=== PATIENT | male | born 1990 | race Caucasian/White ===

== ENCOUNTER 2016-10-18 16:11 | Inpatient (IN) | payer OTHER ==
[~2016-10-18] VITALS: Ht 190.5 cm; Wt 140.1 kg
--- NOTE | ~2016-10-18 | HP ---
PATIENT'S NAME: KORINA DOMINGO [facility] AGE: 25 Y [address] ROOM: [place] [address] LOCATION: [facility] ADMIT DATE: 10/18/2016 History & Physical DISCHARGE DATE: FAMILY PHYSICIAN: Kade Fischer MD ATTENDING PHYSICIAN: LEANDRO KEYES DATE OF SERVICE: CHIEF COMPLAINT: Left leg pain. HISTORY OF PRESENT ILLNESS: Mr. Domingo is a pleasant 25-year-old gentleman, who sustained a trauma to his left lower extremity when a coworker accidentally lowered a backhoe bucket onto his left ankle. At that time, he complained of immediate left ankle and foot pain /. Aggravating factors include manipulation of the limb, attempted weightbearing, or movement of the leg. Alleviating factors include rest, ice, and elevation. He was seen at outside hospital and transferred to our emergency room for definitive orthopedic care. The patient denies any previous trauma or surgery to that limb. He reports that the injury occurred at 1400 hours today. He currently denies any constitutional symptoms such as fever, chills, or night sweats. He also denies any dizziness, chest pain, shortness of breath, blurred vision, nausea, vomiting, or diarrhea. REVIEW OF SYSTEMS: A 10-point review of system otherwise, as mentioned above in the HPI. PAST MEDICAL HISTORY: Includes depression and hypertension. PAST SURGICAL HISTORY: None. ALLERGIES: NO KNOWN DRUG ALLERGIES. MEDICATIONS: Include, 1. Lisinopril. 2. Zoloft. SOCIAL HISTORY: The patient consumes alcohol socially. Denies any tobacco or illicit drug use. PATIENT'S NAME: KORINA DOMINGO [facility] AGE: 25 Y [address] ROOM: [address] [address] LOCATION: [facility] ADMIT DATE: 10/18/2016 History & Physical DISCHARGE DATE: FAMILY PHYSICIAN: Kade Fischer MD ATTENDING PHYSICIAN: LEANDRO KEYES FAMILY HISTORY: Includes hypertension on both the mother and father's side of the family. PHYSICAL EXAMINATION: VITAL SIGNS: He has a Jessee Coma score of 15. Weight of 137.2 kg, pulse of 99, respirations 16, temperature 99.3, SpO2 of 96% on room air, blood pressure 172/88, 6 feet 3 inches in height. HEENT: Normocephalic and atraumatic. Extraocular movements are intact. PERRLA. Moist mucous membranes. Oropharyngeal airway is clear. NECK: Supple. Trachea is in midline. CARDIOVASCULAR: Regular rate and rhythm. CHEST: Normal symmetric respirations are observed bilaterally. ABDOMEN: Soft, nontender, and nondistended. MUSCULOSKELETAL: Left lower extremity: Focal examination of the patient's left lower extremity reveals that he is grossly neurologically intact distally. Compartments of the thigh, leg, and foot are soft. There is a palpable posterior tibial pulse. There is no palpable dorsalis pedal pulse. There is significant swelling at the ankle. The patient denies sensation to be intact to light touch to the SPN/TPN/tibial nerve distributions. There is good capillary refill in the toes. There is crepitus noted at the distal 1/3 aspect of the leg. There is a 11.5 x 10 cm abrasion over the anterior aspect of the ankle that appears superficial in nature. LABORATORY VALUES: Include a CBC; white blood cell count of 10.5, hemoglobin of 13.7, hematocrit 38.3, and a platelet count of 260. Chemistry includes a sodium of 142, potassium of 4.1, chloride of 111, CO2 of 24, anion gap of 1.1, glucose of 106, calcium 8.7, BUN 13, creatinine 1.2. IMAGING: Plain radiographs of the left ankle reveal evidence of a distal 1/3 tibia fracture with displacement and comminution. There was also a distal transverse fibular fracture present. There is significant swelling noted by plain film. IMPRESSION: 1. Left distal 1/3 tibia pilon fracture and fibula fractures. 2. Hypertension. 3. Depression. PLAN: I had a long discussion with the patient in the presence of his mother regarding his left lower extremity. The patient sustained a severe trauma to the left lower extremity. Soft-tissue envelope, despite the fact that there is an abrasion present. He is completely neurovascular intact, he has a PATIENT'S NAME: KORINA DOMINGO [facility] AGE: 25 Y [address] ROOM: [place] [address] LOCATION: [facility] ADMIT DATE: 10/18/2016 History & Physical DISCHARGE DATE: FAMILY PHYSICIAN: Kade Fischer MD ATTENDING PHYSICIAN: LEANDRO KEYES palpable posterior tibial pulse, and his compartments are soft. We are going to provisionally splint him in the emergency room to get his pain under control. I am going to admit the patient in the hospital and consult the hospitalist for concomitant medical care. I am planning to take the patient to the operating room tomorrow for an open reduction and internal fixation of his left distal tibia pilon fracture and fibula. I will likely also stabilize the syndesmosis. I discussed the risks, benefits, and alternatives pursuing a surgical intervention with the patient in detail. I discussed the risks of anesthesia, infection, bleeding, and/or injury to neurovascular structures. I explained that despite bony stabilization, a soft tissue may continue to swell, and may require subsequent surgery if in fact the soft-tissue envelope remains tenuous. The other option may be to place a spanning external fixator, as well. They expressed understanding of this. Informed consent was obtained. We will plan for surgery as soon as tomorrow. The patient will remain nonweightbearing on the left lower extremity for now. DVT prophylaxis will be mechanical in nature. He will be n.p.o. after midnight. MD GRACE YUAN/modl /[id number] D: [id number] T: [id number] HISTORY & PHYSICAL
--- NOTE | ~2016-10-18 | CON ---
PATIENT'S NAME: KORINA DOMINGO [facility] AGE: 25 Y [address] ROOM: [place] [address] LOCATION: [facility]ICU ADMIT DATE: 10/18/2016 Consultation DISCHARGE DATE: FAMILY PHYSICIAN: Kade Fischer MD ATTENDING PHYSICIAN: LEANDRO KEYES DATE OF CONSULTATION: 10/18/2016 CHIEF COMPLAINT: Preoperative evaluation for left lower extremity crush injury. HISTORY OF PRESENTING ILLNESS: This 25-year-old white male with history of hypertension and obesity, was transferred to [facility] from [place] after an injury, which occurred in [facility] earlier today. Apparently, he was sitting in the top dyeing machine loader bucket of a skid steer when another piece of equipment moved towards him. He was unable to move out of the way in time and became trapped between the two pieces of equipment. He had pain and deformity in the left lower extremity and was subsequently taken to the [facility] for evaluation. He was noted by nursing staff to have diminished sensation and poor blood flow. X-rays demonstrated tib-fib fracture. Dr. Beckham, emergency room physician was contacted and it was requested that he be transferred here for definitive evaluation and management. Dr. Keyes was consulted and it was recommended that he be admitted for operative intervention. On my evaluation, he complains of pain in the left leg and foot at 6/10. He did get some relief with pain medicine earlier but feels that it is getting worse again. He denies headache. Denies nausea. No chest pain, shortness of breath, or abdominal pain. He denies any other injuries associated with the incident. ALLERGIES: NO KNOWN DRUG ALLERGIES. ILLNESSES: 1. Hypertension. 2. Obesity. 3. Depression. 4. Speech impediment. CURRENT MEDICATIONS: 1. Lisinopril 20 mg p.o. daily. 2. Sertraline 25 mg p.o. daily. FAMILY HISTORY: PATIENT'S NAME: KORINA DOMINGO [facility] AGE: 25 Y [address] ROOM: [id number] [place] [id number] LOCATION: [facility] ADMIT DATE: 10/18/2016 Consultation DISCHARGE DATE: FAMILY PHYSICIAN: Kade Fischer MD ATTENDING PHYSICIAN: DEBLIS,LEANDRO C Significant for diabetes mellitus type 2 on his father side. Mother has high blood pressure. SOCIAL HISTORY: He is unmarried and lives in [place]. He is a nonsmoker. Denies any illicit drug use. He drinks alcohol only rarely. REVIEW OF SYSTEMS: As per HPI. All other organ systems reviewed and are negative. OBJECTIVE: VITAL SIGNS: Temperature 99.3, pulse 99, respirations 16, blood pressure 172/88, and O2 saturation 96% on room air. GENERAL: He is anxious, but cooperative, lying in the bed, in no acute distress but complaining of pain in the left lower extremity. SKIN: Supple, pink, warm, and dry. There are no obvious rashes. He has obvious ecchymosis and bruising about the left lower extremity. There is some obvious deformity about the left ankle. HEENT: Otherwise, normocephalic. Sclerae nonicteric. Pupils equal, round, and reactive to light and accommodation. Extraocular movements appear intact. Nasal turbinates normal in appearance. Oropharynx clear. Mucous membranes are pink and moist. NECK: Supple. Plethoric and obese. No masses or adenopathy. No thyromegaly. No JVD. CHEST: Chest wall is symmetrical. HEART: Regular without murmurs. LUNGS: Clear bilaterally. No wheezes or crackles are heard. ABDOMEN: Soft and nontender. Bowel sounds present. No mass. No splenomegaly. AND RECTAL: Not done. EXTREMITIES. Display no clubbing or edema. There is an obvious effusion about the left ankle with the aforementioned deformity. The foot is cool with a poorly palpable pulse at the dorsal foot. There is 3 to 4 seconds cap refill at the great toe. X-rays not available for review. ASSESSMENT/PLAN: 1. Essential hypertension, adequate but suboptimal control. We will monitor the trend and make adjustments if necessary. We will utilize p.r.n. hydralazine for blood pressures greater than 180. 2. Elevated liver function tests, asymptomatic. I suspect fatty liver. We will not plan for any additional inpatient workup, but defer this back to his primary care provider. 3. Dysthymia, historically stable on SSRI therapy with sertraline. No PATIENT'S NAME: KORINA DOMINGO [facility] AGE: 25 Y [address] ROOM: [id number], [place] [address] LOCATION: [facility]ICU ADMIT DATE: 10/18/2016 Consultation DISCHARGE DATE: FAMILY PHYSICIAN: Kade Fischer MD ATTENDING PHYSICIAN: LEANDRO KEYES changes and monitor. 4. Morbid obesity. We will need to work on some long-term strategies for weight loss including balanced dietary intake, decreased calories, and increased exercise. 5. Crash injury, left lower extremity. Plan is for operative intervention tomorrow per Dr. Keyes. We will defer operative management to him. There are no absolute contraindications to proceed with surgery. 6. Deep venous thrombosis prophylaxis. Follow the VTE protocol. ELAYNE J MD EDITH GORE/izaiah /[id number] d: 10/19/16 0019 t: 10/19/16 0931, CONSULTATION REPORT
--- NOTE | ~2016-10-18 | OR ---
PATIENT'S NAME: KORINA [facility] AGE: 25 Y [address] ROOM: [place] [address] LOCATION: [facility]ICU ADMIT DATE: 10/18/2016 OR/Procedure Report DISCHARGE DATE: FAMILY PHYSICIAN: Magaly Abreu PA-C ATTENDING PHYSICIAN: LEANDRO KEYES SURGEON: Leandro Keyes MD LABORER GOLD LEAF: Gerard Cody PA-C. DATE OF PROCEDURE: 10/19/2016 PREOPERATIVE DIAGNOSES: Left distal one-third tibia fracture with comminution and comminuted distal fibula fracture. POSTOPERATIVE DIAGNOSES: Left distal one-third tibia fracture with comminution and comminuted distal fibula fracture. PROCEDURE: 1. Left tibial intramedullary nailing. 2. Left fibula intramedullary nailing. 3. Use of intraoperative fluoroscopy, less than 1 hour. ANESTHESIA: General endotracheal anesthesia. FLUIDS: See Anesthesia report. ESTIMATED BLOOD LOSS: 50 mL. SPECIMEN: None. COMPLICATIONS: None. DISPOSITION: Stable in PACU. COUNTS: All counts correct. IMPLANTS: Include Synthes tibia intramedullary nail with proximal and distal interlocking screws in the fibula intramedullary nail. INDICATIONS: Korina is a 25-year-old gentleman who underwent the noted procedures above. The risks, benefits, and alternatives of pursuing surgical intervention were discussed with the patient in detail. The patient elected to proceed with surgery. Anesthesia was consulted for their perioperative evaluation of the patient. I marked the patient's left lower extremity indicating the correct surgical site. DESCRIPTION OF PROCEDURE: The patient was brought from the holding area to PATIENT'S NAME: KORINA [facility] AGE: 25 Y [address] ROOM: [id number] [place] [id number] LOCATION: [facility] ADMIT DATE: 10/18/2016 OR/Procedure Report DISCHARGE DATE: FAMILY PHYSICIAN: Magaly Abreu PA-C ATTENDING PHYSICIAN: LEANDRO KEYES the operating room. A time-out was performed. General endotracheal anesthesia was administered. The patient positioned supine on the operating room table. The left lower extremity was then prepped and draped in a sterile fashion. I turned my attention to the left knee. An Esmarch was used to exsanguinate the limb, and the tourniquet was inflated to 250 mmHg. I began by introducing intraoperative fluoroscopy. I made an incision at the medial aspect of the knee medial to the patella. I introduced a K-wire at the level of the intramedullary notch at the anterior aspect of the proximal tibia. I confirmed the position of my introductory pin in the center-center position. I over drilled it to open the intramedullary canal. I reduced the fracture distally. I subsequently introduced a ball-tip guidewire. Once the position of the guidewire was placed in a satisfactory position, I reamed to a 13.5, to place a size 12 diameter intramedullary nail, 420 mm in length. Once the nail was placed, I placed 2 distal interlocking screws. This was done fluoroscopically, subsequently measured, and then they were placed. Once the screws were placed, I attached a back slapping hammer to the proximal end of the nail to compress the fracture. I achieved excellent compression at the fracture site. I confirmed the position both clinically and radiographically. I then turned my attention to the proximal end of the nail. I made a surgical incision from my interlocking screws. I drilled for, measured, and placed 2 proximal and distal interlocking screws in static holes. I then turned my attention to the fibula. The distal third of the fibula was fractured. The fracture was comminuted and displaced. I made a small surgical incision over the anterior aspect of the fibula. I introduced a [place]view elevator and reduced the fibula. I used a ball-spike pusher to reduce the tibia in the anterior-posterior plane and used a [place] elevator to reduce the fibula in the coronal plane. I then selected an intramedullary pin and beginning at the tip of the fibula drilled for and placed an intramedullary pin. I confirmed the position fluoroscopically. The pin was subsequently bent and then cut. I confirmed fluoroscopically that I had a near anatomic reduction of the fibula. Final fluoroscopic images revealed a well-reduced distal 1/3rd tibia fracture in near anatomic position. All the surgical incisions were copiously irrigated with a normal sterile saline solution. All the wounds were closed in layers. Sterile dressings were placed in the form of Xeroform, followed by 4x4, Webril, and Evin bandage wrapped from the toes up to the proximal thigh. The tourniquet was let down. The patient was then transferred from the operating room table onto the stretcher and extubated. He was brought to the recovery room in stable condition. PATIENT'S NAME: KORINA [facility] AGE: 25 Y [address] ROOM: [id number] [place], [place] [address] LOCATION: [facility] ADMIT DATE: 10/18/2016 OR/Procedure Report DISCHARGE DATE: FAMILY PHYSICIAN: Magaly Abreu PA-C ATTENDING PHYSICIAN: LEANDRO KEYES There were no intraoperative complications noted. Of note, my PA, Gerard Cody PA-C, played an integral role in the intraoperative care of this patient. This included preoperative positioning, intraoperative expert retraction, and closing and dressing functions. IMPRESSION: The patient is status post the noted procedures above. PLAN: The patient will be nonweightbearing on the left lower extremity. Encouraged to rest, ice, and elevate the leg going forward. Postoperative pain control will be in the form of Percocet and IV morphine as needed for pain. He does have a postoperative nerve blocks placed by the Anesthesia Team. Postoperative antibiotics will be administered per routine. Physical Therapy and Occupational Therapy will be consulted for early ambulation and prevention of deconditioning. DVT prophylaxis will be in the form of Lovenox. I will continue to follow the patient closely in the postoperative period. MD GRACE YUAN/izaiah /[id number] d: 10/19/162009 t: 10/20/16 1451, OPERATIVE SUMMARY
--- NOTE | ~2016-10-18 | ER ---
PATIENT'S NAME: [facility] AGE: 25 Y [address] ROOM: [place] [address] LOCATION: [facility] ADMIT DATE: 10/18/2016 ER/Outpatient Report DISCHARGE DATE: FAMILY PHYSICIAN: Kade Fischer MD ATTENDING PHYSICIAN: LEANDRO KEYES Time of Evaluation: 1611 hours. CHIEF COMPLAINT: Left leg pain. HISTORY OF PRESENT ILLNESS: The patient is a 25-year-old male, who presents to the emergency department today with a transfer from [place] with leg injury. He reports it occurred at 1400 hours today, about 2 hours prior to arrival. He said it happened when a co-worker accidentally lowered a backhoe bucket onto his left ankle. He was initially seen at [place] and transferred here for higher level of care. The patient complains of sharp pain. It is currently 8/10 in severity. It is in his left leg. PAST MEDICAL HISTORY: Hypertension, depression. PAST SURGICAL HISTORY: Tonsils and adenoids. SOCIAL HISTORY: The patient denies any tobacco use. Reports very little alcohol use. Denies any illicit drug use. ALLERGIES: NO KNOWN DRUG ALLERGIES. MEDICATIONS: 1. Lisinopril. 2. Zoloft. PRIMARY CARE DOCTOR: CLARISA Abreu, in [place]. REVIEW OF SYSTEMS: All systems are reviewed by myself and are negative with the exception of those discussed in the HPI and past medical history. PHYSICAL EXAMINATION: PATIENT'S NAME: [facility] AGE: 25 Y [address] ROOM: [place] [address] LOCATION: [facility] ADMIT DATE: 10/18/2016 ER/Outpatient Report DISCHARGE DATE: FAMILY PHYSICIAN: Kade Fischer MD ATTENDING PHYSICIAN: LEANDRO KEYES VITAL SIGNS: Weight 137.2 kg, blood pressure 172/88, pulse 99, respiratory rate 16, temperature 99.3, and oxygen saturation 96% on room air. GENERAL: The patient is a 25-year-old male, who appears his stated age, in [id number] acute distress secondary to pain in the left leg. HEENT: Normocephalic, atraumatic. Pupils are equal, round, and reactive to light. NECK: Supple. There is no nuchal rigidity. CARDIOVASCULAR: Regular rate and rhythm. No murmurs, rubs, or gallops. LUNGS: Clear to auscultation bilaterally. No wheezes, rales, or rhonchi. ABDOMEN: Soft, nontender, and nondistended. No rebound, rigidity, or guarding. MUSCULOSKELETAL: The patient has obvious deformity noted to the distal left lower extremity. He does have a 6.5 x 6.5 cm superficial abrasion to the left distal lower anterior leg. A bedside ultrasound is performed. He does have palpable posterior tibial as well as bedside ultrasound to the posterior tibial. I do not see evidence of a dorsalis pedis. The patient's compartments are soft. He does have blanching area anteriorly. LABS AND X-RAYS: X-ray of the left leg is obtained. It does show a comminuted fracture through the distal tibia and fibula. CMP is unremarkable, except for AST 53, ALT is 92. CBC unremarkable. Coags are unremarkable. IMPRESSION: 1. Distal comminuted closed tibia-fibular fracture. 2. Initial visit. EMERGENCY DEPARTMENT COURSE: The patient was brought back to the examination room. Seen and evaluated by myself. IV was established. The patient was given 0.5 mg of Dilaudid IV for pain. I did contact Dr. Cody upon acceptance of the patient as the provider from [place] could not palpate a pulse. When the patient arrived here, the patient did have palpable posterior tibial as well as a bedside ultrasound visualized posterior tibial pulse. Dr. Keyes, Dr. Cody's partner, has seen and evaluated the patient down here in the emergency department. He will admit the patient for definitive treatment. I have discussed the lack of dorsalis pedis pulse with Dr. Keyes. The patient does continue to have a posterior tibial pulse. He does have cap refill less than 2 seconds distally. I have discussed results with the patient. The patient is without further questions. DISPOSITION: PATIENT'S NAME: KORINA DOMINGO [facility] AGE: 25 Y [address] ROOM: [id number] [place], [place] [address] LOCATION: [facility] ADMIT DATE: 10/18/2016 ER/Outpatient Report DISCHARGE DATE: FAMILY PHYSICIAN: Kade Fischer MD ATTENDING PHYSICIAN: LEANDRO KEYES The patient is admitted under the care of Dr. Keyes in stable condition. DO SYLVIA MCFADDEN/ahrpall /[id number] d: 10/18/16 2216 t: 10/24/16 1901, OUTPATIENT REPORT
--- NOTE | ~2016-10-18 | DS ---
PATIENT'S NAME: KORINA DOMINGO [facility] AGE: 26 Y [address] ROOM: [id number] [place], [place] [id number] LOCATION: GICU ADMIT DATE: 10/18/2016 Discharge Summary DISCHARGE DATE: 10/22/2016 FAMILY PHYSICIAN: Magaly Abreu PA-C ATTENDING PHYSICIAN: Reynaldo Abernathy ADMITTING DIAGNOSIS: Left distal 1/3rd tibial pilon fracture and fibular fracture. DISCHARGE DIAGNOSES: Left distal 1/3rd tibial pilon fracture and fibular fracture. SECONDARY DIAGNOSES: 1. Hypertension. 2. Depression. CONSULTATIONS: Hospitalist Service for medical management. OPERATIONS: The patient underwent the following procedure by Dr. Abernathy on October 19, 2016. 1. Left tibial intramedullary nailing. 2. Left fibula intramedullary nailing. HISTORY OF PRESENT ILLNESS: The patient is a pleasant 25-year-old gentleman who sustained trauma to the left lower extremity when a co-worker accidently lowered a backhoe bucket onto his left ankle. At that time, he complained of immediate left ankle pain and foot pain at 10/10. Aggravating factors included manipulating of the limb, attempting weightbearing, or movement of his leg. Relieving factors included rest, ice, and elevation. The patient was seen at an outside hospital and transferred to the [facility] Emergency Room for definitive orthopedic care. The patient denied any previous trauma or surgeries to his lower limb when seen. He reported that the injury occurred around 2 o'clock on the day of admission. When seen in consultation, the patient denied any constitutional symptoms such as fever, chills, or night sweats. He also denied any dizziness, chest pain, shortness of breath, blurred vision, nausea, vomiting, or diarrhea. HOSPITAL COURSE: The patient was admitted on October 18, 2016 after suffering a trauma to his left lower extremity earlier that day. The Hospitalist Service was consulted for preoperative clearance and medical management. The patient during his hospitalization was managed for his hypertension by the Hospitalist Service. He was also kept under adequate pain control having his medications adjusted as needed. On October 19, 2016, the patient underwent the above- described procedure by Dr. Abernathy and tolerated procedure well. The patient had his bandage changed postoperative day #3 and was found to be stable for PATIENT'S NAME: KORINA DOMINGO [facility] AGE: 26 Y [address] ROOM: [id number] [place], [place] [address] LOCATION: [facility] ADMIT DATE: 10/18/2016 Discharge Summary DISCHARGE DATE: 10/22/2016 FAMILY PHYSICIAN: Magaly Abreu PA-C ATTENDING PHYSICIAN: Reynaldo Abernathy discharge home at that time. MEDICATIONS: New medications Percocet 5/325 1 to 2 tabs every 4 to 6 hours p.r.n. pain, Lovenox 40 mg subcu daily, and diazepam 5 mg 1 tablet every 6 hours as needed for muscle spasms. Dosage change lisinopril 40 mg p.o. daily. The patient is continuing his home sertraline 50 mg p.o. daily. DISCHARGE INSTRUCTIONS: The patient is to be nonweightbearing of left lower extremity. He has no restrictions on his diet. He is to followup in Dr. Abernathy' office on October 29, 2016 at 1 p.m. DISCHARGE STATUS: Good. NENA MORATAYA PA-C FOR MD RORY YUAN/izaiah /[id number] d: 11/07/16 0146 t: 11/07/16 1522, DISCHARGE SUMMARY
[2016-10-18 16:45] LABS: BASOPHIL % 0.3 %; EOSINOPHIL % 0.4 %; HEMATOCRIT 38.3 % (37.0-53.0); HEMOGLOBIN 13.7 g/dL (12.0-17.0); IMMATURE GRANULOCYTE % 0.3 %; LYMPHOCYTE # 0.9 K/uL (0.8-4.0); LYMPHOCYTE % 8.3 %; MCH 31.3 pg (27.0-34.0); MCHC 35.8 gm/dL (32.0-36.5); MCV 87.4 fl (83.0-98.0); MONOCYTE # 0.6 K/uL (0.0-1.0); MONOCYTE % 5.9 %; MPV 9.5 fl (9.4-12.4); NEUTROPHIL % 84.8 %; NRBC % 0 /100WBC (0-0.00); PLATELET COUNT 260 K/uL (150-450); RBC 4.38 M/uL (4.00-6.00); RDW-CV 12.3 % (11.9-14.6); WBC 10.5 K/uL (4.0-11.0)
[2016-10-18 16:50] LABS: INR - (THERAPEUTIC) 0.92 (0.92-1.07); PROTIME 9.6 SECONDS (9.8-11.4); PTT 24 SECONDS (25-32)
[2016-10-18 16:58] LABS: ALBUMIN 4.1 gm/dL (3.5-5.0); ANION GAP 11.1 (10.0-19.0); CALCIUM 8.7 mg/dL (8.5-10.5); CREATININE 1.2 mg/dL (0.6-1.3); POTASSIUM 4.1 mMol/L (3.7-5.1); TOTAL BILIRUBIN 0.7 mg/dL (0.0-1.5)
[2016-10-19] MEDS ORDERED: PRINIVIL (ZESTR20 MG PO (18:05)
[2016-10-19] MEDS ORDERED: ZOLOFT50 MG PO (18:05)
[2016-10-20 05:03] LABS: BASOPHIL % 0.1 %; EOSINOPHIL % 0.1 %; HEMATOCRIT 33.1 % (37.0-53.0); HEMOGLOBIN 11.6 g/dL (12.0-17.0); IMMATURE GRANULOCYTE % 0.3 %; LYMPHOCYTE % 13.7 %; MCH 31.1 pg (27.0-34.0); MCV 88.7 fl (83.0-98.0); MONOCYTE # 0.7 K/uL (0.0-1.0); MONOCYTE % 8.6 %; MPV 9.6 fl (9.4-12.4); NEUTROPHIL # (ANC) 5.9 K/uL (1.4-9.0); NEUTROPHIL % 77.2 %; NRBC % 0 /100WBC (0-0.00); RBC 3.73 M/uL (4.00-6.00); RDW-CV 12.4 % (11.9-14.6); WBC 7.6 K/uL (4.0-11.0)
[2016-10-20 05:05] LABS: PLATELET COUNT 198 K/uL (150-450)
[2016-10-20 05:20] LABS: ALBUMIN 3.3 gm/dL (3.5-5.0); ANION GAP 10.8 (10.0-19.0); BLOOD UREA NITROGEN 10 mg/dL (6-24); CALCIUM 8.2 mg/dL (8.5-10.5); CHLORIDE 107 mMol/L (96-110); CO2 25 mMol/L (22-32); CREATININE 0.9 mg/dL (0.6-1.3); PHOSPHORUS 2.9 mg/dL (2.5-4.9); POTASSIUM 3.8 mMol/L (3.7-5.1); SODIUM 139 mMol/L (135-145)
[2016-10-22] MEDS ORDERED: PERCOCET 5-3251 EACH PO (10:17)
[2016-10-22] MEDS ORDERED: VALIUM5 MG PO (10:18)
[2016-10-22] MEDS ORDERED: LOVENOX 4040 MG/0.4 SUB-Q (10:18)
== END 2016-10-22 11:33 | disposition disaster alternative care site (69) | DRG 909 ==
LOC: GACC 16:11 → GICU 17:06
PROVIDERS: Emergency Medicine; Family Medicine; ADMIT Orthopaedic Surgery Adult Reconstructive Orthopaedic Surgery
PROC: 0QSH06Z Reposition Left Tibia with Intramedullary Internal Fixation Device, Open Approach (ICD-10-PCS; principal; 2016-10-19)
PROC: 0QSK06Z Reposition Left Fibula with Intramedullary Internal Fixation Device, Open Approach (ICD-10-PCS; principal; 2016-10-19)
DX: S87.82XA Crushing injury of left lower leg, initial encounter (principal); E66.01 Morbid (severe) obesity due to excess calories; I10 Essential (primary) hypertension; F34.1 Dysthymic disorder; G47.33 Obstructive sleep apnea (adult) (pediatric); S82.872A Displaced pilon fracture of left tibia, initial encounter for closed fracture; S82.832A Other fracture of upper and lower end of left fibula, initial encounter for closed fracture; R79.89 Other specified abnormal findings of blood chemistry; Z68.37 Body mass index [BMI] 37.0-37.9, adult
CPT/HCPCS: C1713; J0360; J0690; J1170; J1650; J2270; J3480; J7030

== ENCOUNTER 2016-11-11 13:28 | Emergency (ER) | payer OTHER ==
--- NOTE | ~2016-11-11 | ER ---
PATIENT'S NAME: KORINA DOMINGO [facility] AGE: 26 Y [address] ROOM: [place] [address] LOCATION: [facility] ADMIT DATE: 11/11/2016 ER/Outpatient Report DISCHARGE DATE: 11/11/2016 FAMILY PHYSICIAN: Physician, Unknown ATTENDING PHYSICIAN: William Cabezas CHIEF COMPLAINT: Left foot pain and swelling. HISTORY OF PRESENT ILLNESS: Mr. Domingo unfortunately did suffer an accident several weeks ago requiring surgical fixation of multiple fractures in his left ankle related to a job- related injury. He noticed that it was becoming more red per his mother and wanted to get it checked out today. They have not contacted Dr. Abernathy, so the Wound Care has been taking care of him. The mother does perform dressing changes twice daily and states that the redness is more intense and deep, but not really spreading. They most recently were seen in clinic on Saturday. He does have significant open wounds and eschar and sounds like it is healing well otherwise. PAST MEDICAL HISTORY: Documented on the record and reviewed by me. SOCIAL HISTORY: Documented on the record and reviewed by me. MEDICATIONS: Documented on the record and reviewed by me. ALLERGIES: DOCUMENTED ON THE RECORD AND REVIEWED BY ME. REVIEW OF SYSTEMS: All systems reviewed and negative except as noted in the HPI. PHYSICAL EXAMINATION: VITAL SIGNS: Vital signs are as follows. Blood pressure 161/72, pulse 106, respiratory rate 16, temperature 97.8, SpO2 is 94% on room air. Pain is rated 0/10. GENERAL: Age-appropriate male, recumbent on exam table. No apparent pain or distress. NEUROLOGIC: Awake and alert. GCS 15. HEENT: Unremarkable. CHEST: Even unlabored respirations. Lungs are clear. HEART: Regular. Tachycardia. No murmurs. PATIENT'S NAME: KORINA DOMINGO [facility] AGE: 26 Y [address] ROOM: [place] [address] LOCATION: ED ADMIT DATE: 11/11/2016 ER/Outpatient Report DISCHARGE DATE: 11/11/2016 FAMILY PHYSICIAN: Physician, Unknown ATTENDING PHYSICIAN: William Cabezas ABDOMEN: Benign. BACK: Normal to inspection. EXTREMITIES: Warm and well perfused. The left lower extremity is notable for large eschar and multiple open wounds on the lateral aspect of the foot, dorsum and posterior aspect of the ankle. Significant eschar with poorly demarcated erythema. No appreciable warmth on my exam. No other obvious abnormalities. LABORATORY DATA AND X-RAYS: No imaging was obtained for this patient encounter. Labs are as follows. Lactate is 1.6. White count is 8.2, hemoglobin is 11.3, platelets of 444, procalcitonin is undetectable. CRP is 4.66. CMS is otherwise unremarkable for any appreciable related abnormalities. IMPRESSION: Chronic wound with healing and mild concern for infection. EMERGENCY DEPARTMENT COURSE: The patient was seen and evaluated as above. Images were reviewed with Dr. Abernathy, the patient's surgeon. We will start him on clindamycin and have him follow up tomorrow in clinic with either Dr. Abernathy or the wound clinic. Return immediately if there is any evidence of systemic infection such as fevers, chills, nausea, vomiting, or other concerning signs or symptoms. MD ALFA GIFFORD/izaiah /[id number] d: 11/12/16 1439 t: 11/20/16 0633, OUTPATIENT REPORT
[~2016-11-11 13:28] MED LIST: LOVENOX 4040 MG/0.4 SUB-Q; PERCOCET 5-3251 EACH PO; PRINIVIL (ZESTR20 MG PO; VALIUM5 MG PO; ZOLOFT50 MG PO
[2016-11-11 14:19] LABS: BASOPHIL % 0.4 %; EOSINOPHIL # 0.1 K/uL (0.0-0.5); EOSINOPHIL % 1.1 %; HEMOGLOBIN 11.3 g/dL (12.0-17.0); IMMATURE GRANULOCYTE % 0.4 %; LYMPHOCYTE # 1.1 K/uL (0.8-4.0); MCH 28.7 pg (27.0-34.0); MCHC 34.2 gm/dL (32.0-36.5); MCV 83.8 fl (83.0-98.0); MONOCYTE # 0.7 K/uL (0.0-1.0); MONOCYTE % 8.7 %; MPV 8.7 fl (9.4-12.4); NEUTROPHIL # (ANC) 6.2 K/uL (1.4-9.0); NEUTROPHIL % 75.4 %; NRBC % 0 /100WBC (0-0.00); PLATELET COUNT 444 K/uL (150-450); RBC 3.94 M/uL (4.00-6.00); RDW-CV 12.1 % (11.9-14.6); WBC 8.2 K/uL (4.0-11.0)
[2016-11-11 14:40] LABS: ALBUMIN 3.2 gm/dL (3.5-5.0); ALK PHOS 114 IU/L (33-138); ALT 69 IU/L (12-78); ANION GAP 12.7 (10.0-19.0); AST 24 IU/L (10-40); BLOOD UREA NITROGEN 13 mg/dL (6-24); CHLORIDE 105 mMol/L (96-110); CO2 24 mMol/L (22-32); POTASSIUM 3.7 mMol/L (3.7-5.1); SODIUM 138 mMol/L (135-145); TOTAL BILIRUBIN 0.6 mg/dL (0.0-1.5); TOTAL PROTEIN 8.4 g/dL (6.0-8.4)
== END 2016-11-11 15:17 | disposition disaster alternative care site (69) ==
LOC: GMED 13:28
PROVIDERS: Emergency Medicine
DX: S91.002D Unspecified open wound, left ankle, subsequent encounter (principal); I10 Essential (primary) hypertension; F32.9 Major depressive disorder, single episode, unspecified; Z79.899 Other long term (current) drug therapy; Z98.890 Other specified postprocedural states; X58.XXXD Exposure to other specified factors, subsequent encounter